=== PATIENT | male | born 1965 | race Caucasian/White ===

== ENCOUNTER 2017-11-10 06:46 | Day surgery (SDC) | payer OTHER ==
[2017-11-10] MEDS ORDERED: BALANCED SALT SOLN 15 ML OPH IRRIG (07:00)
[2017-11-10] MEDS ORDERED: BROMFENAC SODIUM 1.7 ML OPH DROP OPER (07:23)
[2017-11-10] MEDS ORDERED: LIDOCAINE 3.5% GEL TUBE OPER (07:23)
[2017-11-10] MEDS ORDERED: LACTATED RINGER'S 1,000 ML IV (07:24)
[2017-11-10] MEDS ORDERED: TETRACAINE 0.5% 4 ML OPH OPER (07:24)
[2017-11-10] MEDS ORDERED: MOXIFLOXACIN 0.5% 3 ML OPH OPER (07:24)
[2017-11-10] MEDS ORDERED: TETRACAINE 0.5% 4 ML OPH (07:34)
[2017-11-10] MEDS ORDERED: LIDOCAINE 1% (MPF) 10 ML INJ (07:34)
[2017-11-10] MEDS ORDERED: EPINEPHrine 1 MG INJ (07:35)
[2017-11-10] MEDS ORDERED: TOBRAMYCIN/DEXAMETH 3.5 GM OPH OINT (07:48)
[2017-11-10] MEDS: LIDOCAINE 1%/EPI 30 ML INJ (07:48)
[2017-11-10 07:58] LABS: ADD MAN DIFF? NO
[2017-11-10 08:02] LABS: BASOPHILS % 0.6 % (0.0-2.0); EOSINOPHILS # 0.2 10^3/ul (0.0-0.5); EOSINOPHILS % 2.5 % (0.0-7.0); HEMOGLOBIN 13.5 g/dl (14.0-18.0); LYMPHOCYTES # 1.9 10^3/ul (0.8-2.9); LYMPHOCYTES % 29.5 % (15.0-51.0); MEAN CORPUSCULAR HEMOGLOBIN 31.5 pg (29.0-33.0); MEAN CORPUSCULAR HGB CONC 33.8 g/dl (32.0-37.0); MEAN CORPUSCULAR VOLUME 93.2 fl (82.0-101.0); MEAN PLATELET VOLUME 9.1 fl (7.4-10.4); MONOCYTE # 0.4 10^3/ul (0.3-0.9); MONOCYTES % 6.5 % (0.0-11.0); NEUTROPHIL # 3.8 10^3/ul (1.6-7.5); NEUTROPHILS % 60.7 % (39.0-77.0); PLATELET COUNT 312 10^3/UL (140-415); RED BLOOD COUNT 4.29 10^6/ul (4.70-6.10); RED CELL DISTRIBUTION WIDTH 12.9 % (11.5-14.5)
[2017-11-10 08:02] LABS: WHITE BLOOD COUNT 6.3 10^3/ul (4.8-10.8)
[2017-11-10 08:21] LABS: ANION GAP 10 (8-16); BLOOD UREA NITROGEN 11 mg/dl (7-20); CALCIUM 8.7 mg/dl (8.4-10.2); CARBON DIOXIDE 28 mmol/L (21-31); CHLORIDE 108 mmol/L (97-110); CREATININE 0.66 mg/dl (0.61-1.24); GLUCOSE 99 mg/dl (70-220); POTASSIUM 4.1 mmol/L (3.5-5.1); SODIUM 142 mmol/L (135-144)
[2017-11-10] MEDS ORDERED: LABETALOL HCL 20MG INJ IV (08:30)
[2017-11-10] MEDS ORDERED: HYDROmorphONE 1 MG/5 ML IV SYRINGE IV ×2 (08:30)
[2017-11-10] MEDS ORDERED: EPHEDrine SULFATE 50 MG/5 ML SYG IV (08:30)
[2017-11-10] MEDS ORDERED: ONDANSETRON 4 MG INJ IV (08:30)
[2017-11-10] MEDS ORDERED: FENTAnyl 50 MCG/ML VIAL IV ×2 (08:30)
[2017-11-10] MEDS ORDERED: METOCLOPRAMIDE 10 MG INJ (09:38)
[2017-11-10] MEDS ORDERED: FENTAnyl 50 MCG/ML VIAL (09:38)
[2017-11-10] MEDS ORDERED: ONDANSETRON 4 MG INJ (09:38)
[2017-11-10] MEDS ORDERED: DEXAMETHASONE 4 MG/ML 1 ML INJ (09:38)
[2017-11-10] MEDS ORDERED: MIDAZOLAM 1 MG/ML 2 ML INJ (09:38)
== END 2017-11-10 10:56 | disposition home or self-care (01) ==
LOC: SDS 06:46
DX: H11.052 Peripheral pterygium, progressive, left eye (principal)
CPT/HCPCS: 65426; 80048; 85025; 93005

== ENCOUNTER 2018-01-19 09:10 | Day surgery (SDC) | payer OTHER ==
[~2018-01-19 09:10] MED LIST: BALANCED SALT SOLN 15 ML OPH IRRIG
[2018-01-19] MEDS ORDERED: LABETALOL HCL 20MG INJ IV (11:30)
[2018-01-19] MEDS ORDERED: ONDANSETRON 4 MG INJ IV (11:30)
[2018-01-19] MEDS ORDERED: METOCLOPRAMIDE 10 MG INJ IV (11:30)
[2018-01-19] MEDS ORDERED: hydrALAzine 20 MG INJ IV (11:30)
[2018-01-19] MEDS ORDERED: LACTATED RINGER'S 1,000 ML IV (11:59)
[2018-01-19] MEDS: MOXIFLOXACIN 0.5% 3 ML OPH OPER (12:13)
[2018-01-19] MEDS: LIDOCAINE 3.5% GEL TUBE OPER (12:13)
[2018-01-19] MEDS: BROMFENAC SODIUM 1.7 ML OPH DROP OPER (12:14)
[2018-01-19] MEDS: PHENYLephrine 2.5% 15 ML OPH OPER ×2 (12:14→13:53)
[2018-01-19] MEDS: TETRACAINE 0.5% 4 ML OPH OPER ×2 (12:18→13:52)
[2018-01-19] MEDS ORDERED: PHENYLephrine 10% 5 ML OPH (13:00)
[2018-01-19] MEDS ORDERED: TOBRAMYCIN/DEXAMETH 3.5 GM OPH OINT (13:00)
[2018-01-19 13:01] LABS: ADD MAN DIFF? NO
[2018-01-19 13:05] LABS: WHITE BLOOD COUNT 8.4 10^3/ul (4.8-10.8)
[2018-01-19 13:05] LABS: BASOPHIL # 0.1 10^3/ul (0.0-0.1); BASOPHILS % 0.6 % (0.0-2.0); EOSINOPHILS # 0.2 10^3/ul (0.0-0.5); EOSINOPHILS % 1.8 % (0.0-7.0); HEMOGLOBIN 14.7 g/dl (14.0-18.0); LYMPHOCYTES # 2.6 10^3/ul (0.8-2.9); LYMPHOCYTES % 30.6 % (15.0-51.0); MEAN CORPUSCULAR HEMOGLOBIN 30.9 pg (29.0-33.0); MEAN CORPUSCULAR HGB CONC 34.2 g/dl (32.0-37.0); MEAN CORPUSCULAR VOLUME 90.5 fl (82.0-101.0); MEAN PLATELET VOLUME 9.2 fl (7.4-10.4); MONOCYTE # 0.5 10^3/ul (0.3-0.9); MONOCYTES % 5.3 % (0.0-11.0); NEUTROPHIL # 5.2 10^3/ul (1.6-7.5); NEUTROPHILS % 61.5 % (39.0-77.0); PLATELET COUNT 324 10^3/UL (140-415); RED BLOOD COUNT 4.75 10^6/ul (4.70-6.10)
[2018-01-19 13:23] LABS: ANION GAP 9 (5-13); BLOOD UREA NITROGEN 14 mg/dl (7-20); CALCIUM 9.2 mg/dl (8.4-10.2); CARBON DIOXIDE 29 mmol/L (21-31); CHLORIDE 105 mmol/L (97-110); CREATININE 0.69 mg/dl (0.61-1.24); Estimated GFR > 60 mL/min (>60); GLUCOSE 91 mg/dl (70-220); POTASSIUM 4.5 mmol/L (3.5-5.1); SODIUM 143 mmol/L (135-144)
[2018-01-19 13:31] LABS: INR 0.94; PROTIME 12.7 Sec (11.9-14.9)
[2018-01-19 13:32] LABS: PARTIAL THROMBOPLASTIN TIME 30.7 Sec (23.0-35.0)
[2018-01-19] MEDS: LIDOCAINE 1%/EPI 30 ML INJ INJ (13:52)
[2018-01-19] MEDS: TOBRAMYCIN/DEXAMETH 3.5 GM OPH OINT OPER (13:54)
== END 2018-01-22 09:09 | disposition home or self-care (01) ==
LOC: SDS 09:10
DX: H11.051 Peripheral pterygium, progressive, right eye (principal); F17.200 Nicotine dependence, unspecified, uncomplicated
CPT/HCPCS: 65426; 71045; 80048; 85025; 85610; 85730; 93005